=== PATIENT | male | born 1950 | race Caucasian/White ===

== ENCOUNTER 2016-11-22 11:44 | Emergency (ER) | payer MEDICARE, OTHER ==
[~2016-11-22] VITALS: Ht 172.7 cm; Wt 109.0 kg
[~2016-11-22 11:44] MED LIST: ATEN-51 PO; BENA5TAB2 PO; SIMV20TA PO
[2016-11-22 11:49] VITALS: Ht 172.7 cm; Wt 109.0 kg
--- NOTE | 2016-11-22 12:48 | RADRPT ---
PROCEDURE: XR Chest. CLINICAL INDICATION: Chest pain TECHNIQUE: AP view of the chest was performed. COMPARISON: 02/09/2015 FINDINGS: There are low lung volumes with bibasilar atelectasis. The lungs are otherwise clear The heart size is normal. The osseous structures are intact. IMPRESSION: Bibasilar atelectasis. No radiographic evidence for acute cardiopulmonary disease RPTAT: QQ .Maude Gutierrez MD, MD Date Time Electronically viewed and signed by .Maude Gutierrez MD, on 11/22/2016 12:47 .M/
[2016-11-22 12:53] LABS: BASOPHILS % 0.4 % (0.0-2.0); EOSINOPHILS % 0.5 % (0.0-7.0); HEMATOCRIT 46.9 % (42.0-52.0); HEMOGLOBIN 15.5 g/dl (14.0-18.0); LYMPHOCYTES # 1.2 10^3/ul (0.8-2.9); LYMPHOCYTES % 13.7 % (15.0-51.0); MEAN CORPUSCULAR HEMOGLOBIN 31.3 pg (29.0-33.0); MEAN CORPUSCULAR VOLUME 94.7 fl (82.0-101.0); MEAN PLATELET VOLUME 8.7 fl (7.4-10.4); MONOCYTE # 0.9 10^3/ul (0.3-0.9); NEUTROPHILS % 74.9 % (39.0-77.0); PLATELET COUNT 239 10^3/UL (140-415); RED BLOOD COUNT 4.95 10^6/ul (4.70-6.10); RED CELL DISTRIBUTION WIDTH 13.1 % (11.5-14.5); WHITE BLOOD COUNT 8.6 10^3/ul (4.8-10.8)
[2016-11-22 13:19] LABS: ALBUMIN 4.5 g/dl (3.3-4.9); ALBUMIN/GLOBULIN RATIO 1.18; BILIRUBIN,INDIRECT 0.3 mg/dl (0-1.1); BILIRUBIN,TOTAL 0.3 mg/dl (0.2-1.3); CALCIUM 9.6 mg/dl (8.4-10.2); CREATININE 1.08 mg/dl (0.61-1.24); POTASSIUM 4.5 mmol/L (3.5-5.1); TOTAL PROTEIN 8.3 g/dl (6.1-8.1)
[2016-11-22 13:31] LABS: TROPONIN-I 0.014 ng/ml (0.00-0.12)
[2016-11-22] MEDS ORDERED: SOD CHLORIDE 0.9% 1,000 ML IV ONE (14:00)
[2016-11-22] MEDS ORDERED: OMEP20CA16 PO (14:09)
[2016-11-22] MEDS ORDERED: SIMV40TA2 PO (14:09)
[2016-11-22] MEDS ORDERED: BENA20TA48 PO (14:09)
--- NOTE | 2016-11-22 15:33 | ERA ---
ER Documentation Chief Complaint Date/Time DATE: 11/22/16 TIME: 15:33 Chief Complaint SOB X5 DAYS, CP TODAY, SPEAKING FULL SENTENCES, NO JVD HPI This is a 66-year-old male with a past medical history of hypertension and hyperlipidemia, no personal or family history of heart attack who is presenting with 5 days of productive cough of clear sputum, intermittent chills, and shortness of breath associated with the cough. The patient reports that he has been coughing so much that his chest has started to hurt with coughing. He denies chest pain when he is not coughing. The patient does not have a history of COPD or asthma. He does not have a history of heart failure. The patient does not feel short of breath at this time. He is able to take deep breaths without pain. The patient wanted further evaluation because he has been quite fatigued over the last several days, and the cough has been bothering him. The patient does not take any hormonal medications. He is not hypoxic. He does not have any calf swelling or pain. He is not been on any recent travel. He has not had any recent surgeries. He has not been bedbound for any reason. He has not felt lightheaded or dizzy and he has not syncopized. He does not endorse pleuritic chest pain. ROS All systems reviewed and are negative except as per history of present illness. Medications Home Meds Active Scripts Albuterol Sulfate* (Ventolin HFA*) 18 Gm Hfa.aer.ad, 2 PUFF INHALATION Q6H Y for SHORTNESS OF BREATH, #1 INHALER Prov:JAMES DUNNE MD 11/22/16 Benzonatate* (Tessalon Perle*) 100 Mg Capsule, 100 MG PO Q8H Y for COUGH for 7 Days, CAP Prov:JAMES DUNNE MD 11/22/16 Reported Medications Omeprazole* (Omeprazole*) 20 Mg Capsule.dr, 20 MG PO DAILY, #30 CAP 11/22/16 Simvastatin* (Zocor*) 40 Mg Tablet, 40 MG PO QHS, #30 TAB 11/22/16 Benazepril Hcl* (Benazepril Hcl*) 20 Mg Tablet, 20 MG PO DAILY, #30 TAB 11/22/16 Atenolol* (Atenolol*) 25 Mg Tablet, 25 MG PO DAILY, TAB 09/25/14 Discontinued Reported Medications Simvastatin* (Zocor*) 20 Mg Tablet, 20 MG PO HS, TAB 02/09/15 Benazepril Hcl* (Benazepril Hcl*) 5 Mg Tablet, PO DAILY, TAB 09/25/14 Allergies Allergies: Coded Allergies: No Known Allergy (Unverified , 11/22/16) PMhx/Soc History of Surgery: Yes (hernia repair ,2006) Anesthesia Reaction: No Hx Neurological Disorder: No Hx Respiratory Disorders: No Hx Cardiac Disorders: Yes (hypertension,hypercholesterolemia) Hx Psychiatric Problems: No Hx Miscellaneous Medical Probl: No Hx Alcohol Use: Yes Hx Substance Use: No Hx Tobacco Use: No Smoking Status: Never smoker FmHx Family History: No diabetes Physical Exam Vitals Vital Signs Date Time Temp Pulse Resp B/P Pulse Ox O2 Delivery O2 Flow Rate FiO2 11/22/16 15:35 96 22 137/74 96 11/22/16 14:25 110 22 138/98 96 11/22/16 11:49 98.8 123 22 195/118 96 Physical Exam Const: No apparent distress, well-developed, well-nourished Head: Atraumatic Eyes: Normal Conjunctiva ENT: Normal External Ears, Nose and Mouth. Neck: Full range of motion..~ No meningismus. Resp: Clear to auscultation bilaterally Cardio: Regular rate and rhythm, no murmurs Abd: Soft, non tender, non distended. Normal bowel sounds Skin: No petechiae or rashes Back: No midline or flank tenderness Ext: No cyanosis, or edema, negative des's sign Neur: Awake and alert, normal strength, normal sensation, cranial nerves intact. Psych: Normal Mood and Affect Result Diagram: 11/22/16 1245 11/22/16 1245 Results 24 hrs Laboratory Tests Test 11/22/16 12:45 White Blood Count 8.610^3/ul Red Blood Count 4.9510^6/ul Hemoglobin 15.5g/dl Hematocrit 46.9% Mean Corpuscular Volume 94.7fl Mean Corpuscular Hemoglobin 31.3pg Mean Corpuscular Hemoglobin Concent 33.0g/dl Red Cell Distribution Width 13.1% Platelet Count 62155^3/UL Mean Platelet Volume 8.7fl Neutrophils % 74.9% Lymphocytes % 13.7% Monocytes % 10.0% Eosinophils % 0.5% Basophils % 0.4% Nucleated Red Blood Cells % 0.0/100WBC Neutrophils # (Manual) 6.410^3/ul Lymphocytes # 1.210^3/ul Monocytes # 0.910^3/ul Eosinophils # 0.010^3/ul Basophils # 0.010^3/ul Nucleated Red Blood Cells # 0.010^3/ul Sodium Level 144mmol/L Potassium Level 4.5mmol/L Chloride Level 107mmol/L Carbon Dioxide Level 30mmol/L Anion Gap 12 Blood Urea Nitrogen 11mg/dl Creatinine 1.08mg/dl Glucose Level 107mg/dl Calcium Level 9.6mg/dl Total Bilirubin 0.3mg/dl Direct Bilirubin 0.00mg/dl Indirect Bilirubin 0.3mg/dl Aspartate Amino Transf (AST/SGOT) 21IU/L Alanine Aminotransferase (ALT/SGPT) 34IU/L Alkaline Phosphatase 99IU/L Troponin I 0.014ng/ml B-Type Natriuretic Peptide 109PG/ML Total Protein 8.3g/dl Albumin 4.5g/dl Globulin 3.80g/dl Albumin/Globulin Ratio 1.18 Current Medications Medications (Trade) Dose Ordered Sig/Swati Route PRN Reason Start Time Stop Time Status Last Admin Dose Admin Sodium Chloride (NS) 1,000 ml @ 1,000 mls/hr Q1H ONCE IV 11/22/16 14:00 11/22/16 14:59 DC 11/22/16 14:01 Procedures/MDM The patient's presenting with symptoms consistent with a viral infection. He is only been sick for 5 days. He endorses a productive cough, but of clear sputum that he has not had a color change. He is not a smoker. He does not have COPD. He has clear full breath sounds bilaterally. The patient is tachycardic, but he is not hypoxic. He is not tachypneic. He does not have symptoms consistent with a pulmonary embolism. I believe that his tachycardia is related to his viral infectious process. The patient was given IV fluids with resolution of tachycardia. He had a heart rate in the low 90s after 1 L of fluids. The patient's EKG demonstrated a sinus tachycardia. Intervals were unremarkable. There is no evidence of ischemia or STEMI. Patient's blood work was obtained and reviewed. The patient has no leukocytosis or left shift. He is afebrile and I do not suspect a bacterial infectious etiology at this time. The patient is not anemic. The patient's BMP is unremarkable. The patient's troponin is within normal limits. The patient's BNP is likewise within normal limits. The patient's chest x-ray shows clear lungs. The radiology read is as follows: FINDINGS: There are low lung volumes with bibasilar atelectasis. The lungs are otherwise clear The heart size is normal. The osseous structures are intact. IMPRESSION: Bibasilar atelectasis. No radiographic evidence for acute cardiopulmonary disease Electronically viewed and signed by .Maude Gutierrez MD, on 11/22/2016 12:47 Given the patient's constitution of symptoms, I do not suspect a cardiac etiology. The patient does not have findings consistent with COPD, not suspect a COPD exacerbation. The patient does have a significant cough that is quite bothersome to him. He will be sent home with a prescription for Tessalon Perles. He will also be sent home with a prescription for an albuterol inhaler as needed for shortness of breath. However, he did not anticipate he will need this frequently as he is not wheezing. It may help open up his airway and allow for increased sputum excretion which may improve his symptoms. As I do not suspect a bacterial infectious process, I will not prescribe antibiotics at this time. The patient was instructed to follow-up with his primary care physician 2-3 days for reevaluation. If his symptoms persist or worsen, he may benefit from a prescription for azithromycin. This disposition will be deferred to his primary physician. The patient understands the need to follow-up. He will be given precautions with which to return to the emergency department. The patient's blood pressure was initially read is quite high. However, his blood pressure and his heart rate improved significantly. The patient will require reevaluation by his primary care doctor for his blood pressure as well. The patient was made aware of this Departure Diagnosis: Primary Impression: Bronchitis Additional Impressions: Shortness of breath Cough Condition: JAMES Pierre MD Nov 22, 2016 15:33
[2016-11-22 15:35] VITALS: BP 137/74; PULSE 96; RESP 22
[2016-11-22] MEDS ORDERED: BENZ100C70 PO (15:36)
[2016-11-22] MEDS ORDERED: ALBU18HF INHALATION (15:38)
== END 2016-11-22 15:49 | disposition home or self-care (01) ==
LOC: E/R 11:44
DX: J40 Bronchitis, not specified as acute or chronic (principal); R05 Cough; I10 Essential (primary) hypertension
CPT/HCPCS: 36415; 71010; 80053; 83880; 84484; 85025; 93005; 99285; J7030